=== PATIENT | female | born 1960 | race Caucasian/White ===

== ENCOUNTER → 2017-03-17 | Outpatient (CLI) | payer BC ==
[~2017-03-17] MED LIST: COZAAR 25MG25 MG/TAB PO; ESTRACE 1MG1 MG/TAB PO; HORMONES; LOPREEZA1 TAB; LORTAB 5/500 501 TAB PO; NORVASC 5MG5 MG/TAB PO; PRILOSEC 20MG20 MG PO; SINGULAIR 110 MG/TAB PO; TOPROL XL 25MG25 MG PO; ULTRAM 50MG TAB50 MG PO; VITAMIN D
== END ==
LOC: MC.RAD 08:56
DX: Z12.31 Encounter for screening mammogram for malignant neoplasm of breast (principal); N64.89 Other specified disorders of breast

== ENCOUNTER → 2017-03-23 | Outpatient (CLI) | payer BC | LOC: MC.RAD 08:59 | DX: N63 Unspecified lump in breast (principal) ==

== ENCOUNTER → 2017-06-15 | Outpatient (CLI) | payer BC | LOC: COL.PUL 06-10 10:00 | DX: R05 Cough (principal) ==

== ENCOUNTER → 2017-06-27 | Outpatient (CLI) | payer BC | LOC: COL.PUL 09:51 | DX: R05 Cough (principal); Z87.891 Personal history of nicotine dependence | CPT/HCPCS: J7674 ==

== ENCOUNTER 2018-05-11 06:07 | Emergency (ER) | payer BC ==
[~2018-05-11] VITALS: Ht 162.6 cm; Wt 65.0 kg
[2018-05-11 06:13] VITALS: TEMP 97.5
[2018-05-11 07:06] LABS: BASO % 0.5 % (0.0-2.0); EOS # 0.2 (0.0-0.7); GRAN # 3.6 (1.4-6.5); HEMATOCRIT 41.5 % (37.0-47.0); HEMOGLOBIN 14.6 g/dl (12.5-16.0); LYMPH # 2.2 (1.2-3.4); LYMPH % 34.3 % (20.0-51.0); MEAN CELL VOLUME 91 fl (80.0-100.0); MEAN CORPUSCULAR HEMOGLOBIN 32 pg (27.0-31.0); MEAN CORPUSCULAR HGB CONC 35 g/dl (33.0-37.0); MEAN PLATELET VOLUME 10.2 fl (7.4-10.4); MONO # 0.5 (0.1-0.6); PLATELET COUNT 265 K/mm3 (130-400); RED BLOOD COUNT 4.58 M/mm3 (4.10-5.30); REDCELL DISTRIBUTION WIDTH-CV 12.3 % (11.5-14.5)
[2018-05-11 07:23] LABS: ALANINE AMINOTRANSFERASE 28 U/L (9-52); ALBUMIN 4.2 gm/dL (3.5-5.0); ALKALINE PHOSPHATASE 58 U/L (50-136); ANION GAP 6 mmol/L (7-16); AST,SGOT 29 U/L (15-37); BILIRUBIN,TOTAL 0.5 mg/dL (0.0-1.0); BLOOD UREA NITROGEN 16 mg/dL (7-17); C-REACTIVE PROTEIN 0.6 mg/dL (0.0-0.9); CALCIUM 9.3 mg/dL (8.4-10.2); CARBON DIOXIDE 30 mmol/L (22-30); CHLORIDE 101 mmol/L (98-107); GLUCOSE 119 mg/dL (74-106); POTASSIUM 3.8 mmol/L (3.4-5.0); SODIUM 137 mmol/L (137-145); TOTAL PROTEIN 7.3 gm/dL (6.4-8.2)
[2018-05-11 07:39] LABS: TROPONIN-I < 0.012 ng/mL (0.000-0.034)
[2018-05-11 08:06] VITALS: BP 134/91; PULSE 90
== END 2018-05-11 08:11 | disposition home or self-care (01) ==
LOC: COL.ER 06:07
PROVIDERS: Emergency Medicine
DX: I10 Essential (primary) hypertension (principal)

== ENCOUNTER → 2020-06-25 | Outpatient (CLI) | payer BC | LOC: COL.RAD 09:30 | DX: R10.32 Left lower quadrant pain (principal) | CPT/HCPCS: Q9967 ==

== ENCOUNTER → 2021-04-10 | Outpatient (CLI) | payer BC ==
[2021-04-10 15:28] LABS: BASO % 0.5 % (0.0-2.0); EOS # 0.1 (0.0-0.7); EOS % 1.8 % (0-4.0); GRAN # 3.7 (1.4-6.5); GRAN % 60.7 % (42.2-75.2); HEMATOCRIT 39.9 % (37.0-47.0); LYMPH # 1.6 (1.2-3.4); LYMPH % 26.5 % (20.0-51.0); MEAN CELL VOLUME 91 fl (80.0-100.0); MEAN CORPUSCULAR HEMOGLOBIN 32 pg (27.0-31.0); MEAN CORPUSCULAR HGB CONC 35 g/dl (33.0-37.0); MEAN PLATELET VOLUME 10.1 fl (7.4-10.4); MONO # 0.6 (0.1-0.6); MONO % 10.2 % (1.7-9.3); PLATELET COUNT 262 K/mm3 (130-400); RED BLOOD COUNT 4.39 M/mm3 (4.10-5.30); REDCELL DISTRIBUTION WIDTH-CV 12.5 % (11.5-14.5)
[2021-04-10 15:37] LABS: ALBUMIN 4.6 gm/dL (3.5-5.0); BILIRUBIN,TOTAL 0.5 mg/dL (0.0-1.0); CALCIUM 9.4 mg/dL (8.4-10.2); CREATININE, serum 1.26 (0.52-1.25); POTASSIUM 4.3 mmol/L (3.4-5.0); TOTAL PROTEIN 7.6 gm/dL (6.4-8.2)
== END ==
LOC: COL.RAD 14:42
PROVIDERS: Family Medicine
DX: R10.9 Unspecified abdominal pain (principal)

== ENCOUNTER 2021-07-15 09:00 | Outpatient (RCR) | payer BC | END 2021-07-31 | disposition home or self-care (01) | LOC: WSPT | DX: M54.50 Low back pain, unspecified (principal) ==

== ENCOUNTER 2021-12-15 20:10 | Emergency (ER) | payer BC ==
[~2021-12-15] VITALS: Ht 162.6 cm; Wt 69.1 kg
[2021-12-15 20:29] VITALS: BP 178/85; TEMP 98.1
[2021-12-15 22:30] VITALS: PULSE 73
[2021-12-15] MEDS ORDERED: NORCO 325 MG-51 TAB PO (22:38)
== END 2021-12-15 23:11 | disposition home or self-care (01) ==
LOC: COL.ER 20:10
DX: S93.401A Sprain of unspecified ligament of right ankle, initial encounter (principal); S93.402A Sprain of unspecified ligament of left ankle, initial encounter; S96.911A Strain of unspecified muscle and tendon at ankle and foot level, right foot, initial encounter; W10.8XXA Fall (on) (from) other stairs and steps, initial encounter; X50.1XXA Overexertion from prolonged static or awkward postures, initial encounter
CPT/HCPCS: L4386

== ENCOUNTER → 2022-06-02 | Outpatient (CLI) | payer BC ==
[~2022-06-02] MED LIST changes: +NORCO 325 MG-51 TAB PO
== END ==
LOC: COL.RAD 09:36
DX: K76.89 Other specified diseases of liver (principal)

== ENCOUNTER 2022-12-10 13:53 | Emergency (ER) | payer BC ==
[~2022-12-10] VITALS: Ht 162.6 cm; Wt 72.7 kg
[~2022-12-10 13:53] MED LIST changes: +ADVAIR; +ALLEGRA 60MG TA60 MG PO; +LIPITOR20 MG PO; +PROAIR HFA0.09 MG/AC IH; +PROTONIX 40MG T40 MG PO
[2022-12-10 14:01] VITALS: TEMP 97.8
[2022-12-10 14:28] LABS: BASO # 0.1 K/mm3 (0.0-0.2); BASO % 0.7 % (0.0-2.0); EOS # 0.1 K/mm3 (0.0-0.7); EOS % 1.7 % (0.0-4.0); GRAN # 4.3 K/mm3 (1.4-6.5); GRAN % 62.1 % (42.2-75.2); HEMATOCRIT 41.6 % (37.0-47.0); HEMOGLOBIN 14.4 g/dl (12.5-16.0); LYMPH # 1.8 K/mm3 (1.2-3.4); LYMPH % 26.8 % (20.0-51.0); MEAN CELL VOLUME 94 fl (80.0-100.0); MEAN CORPUSCULAR HEMOGLOBIN 32 pg (27-31); MEAN CORPUSCULAR HGB CONC 35 g/dl (33.0-37.0); MEAN PLATELET VOLUME 10.1 fl (7.4-10.4); MONO # 0.6 K/mm3 (0.1-0.6); MONO % 8.6 % (1.7-9.3); PLATELET COUNT 259 K/mm3 (130-400); RED BLOOD COUNT 4.45 M/mm3 (4.10-5.30); REDCELL DISTRIBUTION WIDTH-CV 12.7 % (11.5-14.5)
[2022-12-10 14:29] LABS: PROTHROMBIN TIME 11.8 SECONDS (9.7-12.8)
[2022-12-10 14:32] LABS: PARTIAL THROMBOPLASTIN TIME 36.3 SECONDS (26.0-37.0)
[2022-12-10 14:39] LABS: ALANINE AMINOTRANSFERASE 45 U/L (0-55); ALBUMIN 4.5 gm/dL (3.4-4.8); ALKALINE PHOSPHATASE 70 U/L (40-150); ANION GAP 11 mmol/L (7-16); AST,SGOT 33 U/L (5-34); BILIRUBIN,TOTAL 0.9 mg/dL (0.2-1.2); BLOOD UREA NITROGEN 19 mg/dL (10-20); CALCIUM 9.8 mg/dL (8.4-10.2); CARBON DIOXIDE 23 mmol/L (23-31); CHLORIDE 107 mmol/L (98-107); CREATININE, serum 0.92 mg/dL (0.57-1.11); GLUCOSE 116 mg/dL (70-99); POTASSIUM 3.6 mmol/L (3.5-4.5); SODIUM 141 mmol/L (136-145); TOTAL PROTEIN 7.6 gm/dL (6.2-8.1)
[2022-12-10 14:45] LABS: TROPONIN-I < 0.010 ng/mL (0.00-0.033)
[2022-12-10 15:30] VITALS: BP 162/88; PULSE 66
== END 2022-12-10 15:41 | disposition home or self-care (01) ==
LOC: COL.ER 13:53
PROVIDERS: Emergency Medicine
DX: R60.0 Localized edema (principal); Z87.891 Personal history of nicotine dependence; Z79.82 Long term (current) use of aspirin